=== PATIENT | male | born 1975 | race Caucasian/White ===

== ENCOUNTER → 2016-08-12 | Outpatient (CLI) | payer BC ==
--- NOTE | 2016-08-12 12:35 | DIAGNOSTIC IMAGING REPORT ---
LEFT HIP UNILATERAL 2 VIEWS CLINICAL HISTORY: Left hip pain COMPARISON: None. DISCUSSION: No fractures or dislocations are visualized. There are no erosive or destructive changes. The joint space appears well-preserved. IMPRESSION: Unremarkable conventional radiographic evaluation of the left hip. Electronically signed by: Vitaliy Greenwood M.D. 08/12/2016 12:34 PM Dictated Date/Time: 08/12/2016 12:33 PM
--- NOTE | 2016-08-12 12:36 | DIAGNOSTIC IMAGING REPORT ---
RIGHT HIP UNILATERAL 2 VIEWS CLINICAL HISTORY: Right hip pain COMPARISON: None. DISCUSSION: No fractures or dislocations are visualized. There are no erosive or destructive changes. The joint space appears well-preserved for age. IMPRESSION: Unremarkable conventional radiographic evaluation of the right hip Electronically signed by: Vitaliy Greenwood M.D. 08/12/2016 12:34 PM Dictated Date/Time: 08/12/2016 12:34 PM
== END | disposition home or self-care (01) ==
LOC: C.RAD1850 12:16
PROVIDERS: ATTEND Nurse Practitioner Family
DX: M25.551 Pain in right hip (principal); M25.552 Pain in left hip